=== PATIENT | male | born 1940 | race Caucasian/White ===

== ENCOUNTER → 2017-05-15 | Outpatient (CLI) | payer OTHER, MEDICARE | LOC: BMCIMAGING 10:57 | PROVIDERS: ATTEND Internal Medicine Rheumatology | DX: M05.89 Other rheumatoid arthritis with rheumatoid factor of multiple sites (principal) ==

== ENCOUNTER → 2018-12-30 | Outpatient (CLI) | payer OTHER, MEDICARE | LOC: FIMAGING 07:57 | PROVIDERS: ATTEND Internal Medicine Gastroenterology | DX: K21.9 Gastro-esophageal reflux disease without esophagitis (principal); K44.9 Diaphragmatic hernia without obstruction or gangrene; K22.4 Dyskinesia of esophagus ==

== ENCOUNTER 2019-03-03 20:53 | Inpatient (IN) | payer OTHER, MEDICARE ==
[2019-03-03] MEDS ORDERED: NS 1,000 ML IV ONE (21:10)
[2019-03-03 21:28] LABS: PLATELET COUNT 215 10^3/uL (150-400)
[2019-03-03 21:36] LABS: PROTIME(PATIENT) 12.8 SEC (12.0-15.0)
[2019-03-03] MEDS ORDERED: ACETAMINOPHEN 325 MG TAB PO ONE (21:46)
--- NOTE | 2019-03-03 22:02 | EDPHY ---
H & P Stated Complaint: ST, fever. sent from after neg flu and strep test Time Seen by Provider: 03/03/19 20:59 HPI/ROS: CHIEF COMPLAINT: Fever, sore throat HISTORY OF PRESENT ILLNESS: 78-year-old male presents to the emergency department after being seen at urgent care this evening. Patient is with his . He is relatively uncomfortable, with frequent clearing of his throat, spitting up mucus, and somewhat restless. states that he seemed to have a mild sore throat yesterday but developed a fever today. He has had no occasional cough. She reports that he had a temperature of a 102 degrees and she decided to take him to Urgent Care. She also notes that he seems restless and is not thinking clearly. Patient reports no history of vomiting or diarrhea. No complaints of abdominal pain. No urinary complaints. No complaints of headache or lightheadedness. REVIEW OF SYSTEMS: Review of systems is unobtainable from this patient because of altered mentation. PAST MEDICAL HISTORY: Hemochromatosis, rheumatoid arthritis on methotrexate, psoriasis SOCIAL HISTORY: Here with his . VITAL SIGNS Reviewed by me. Temperature is 38.4 degrees, O2 sat 90% on room air , heart rate 93 GENERAL: Well-developed, well-nourished, seems restless. Frequently blinking his eyes which the states is secondary to dry eyes. HEENT: Atraumatic. Eyes: No icterus, no injection. Mouth: Dry mucous membranes, uvula is slightly enlarged, erythema in the posterior pharynx. No tonsillar enlargement noted. Neck: supple with no adenopathy. No obvious swelling. No stridor. LUNGS: Diminished breath sounds at the left base, no rhonchi or rales. CARDIAC: Regular rate and rhythm, no rubs, murmurs or gallops. ABDOMEN: Soft, nontender, nondistended, bowel sounds normal. BACK: No CVA tenderness. EXTREMITIES: No trauma. No edema. Range of motion is normal throughout. NEURO: Alert, restless but answers questions appropriately although slowly. Moving all extremities x4, grossly nonfocal. SKIN: Warm and dry, no rash. PSYCHIATRIC: Slight somnolence, no agitation. - Personal History Current Tetanus/Diphtheria Vaccine: Unsure Current Tetanus Diphtheria and Acellular Pertussis (TDAP): Unsure Tetanus Vaccine Date: >10 YRS - Medical/Surgical History Hx Asthma: No Hx Chronic Respiratory Disease: No Hx Diabetes: No Hx Cardiac Disease: No Hx Renal Disease: No Hx Cirrhosis: No Hx Alcoholism: No Hx HIV/AIDS: No Hx Splenectomy or Spleen Trauma: No Other PMH: hemachromatosis, RA, psoriasis - Social History Smoking Status: Never smoked Constitutional: Initial Vital Signs Temperature (C) 38.4 C H 03/03/19 21:03 Heart Rate 93 03/03/19 21:03 Respiratory Rate 18 03/03/19 21:03 Blood Pressure 162/89 H 03/03/19 21:03 O2 Sat (%) 90 L 03/03/19 21:03 O2 Delivery Mode Room Air O2 (L/minute) 2 Allergies/Adverse Reactions: No Allergies [NKDA] Allergy (Verified 03/03/19 21:03) Medical Decision Making - Diagnostics Imaging Results: Imaging Impressions Chest X-Ray 03/03/19 21:10 Impression: 1. Bilateral lower lobe pneumonia. 2. Recommend follow-up until clear. Head CT 03/03/19 21:18 Impression: 1. Moderate atrophy. 2. No acute hemorrhage, hydrocephalus, or mass effect. 3. Cerebrovascular atherosclerosis. 4. No definite acute infarct. 5. Moderate microvascular ischemic gliosis. 6. Mild sinusitis. 7.Consider MRI of the brain, if there is continued clinical concern. Findings and recommendations discussed with Emergency Department physician, Suad Dillard MD at 22:07 hour, 03/03/2019. Final report concurs with initial preliminary interpretation. Imaging: Discussed imaging studies w/ electronic semiconductor processor Radiologist, I viewed and interpreted images myself ED Course/Re-evaluation: 78-year-old male presents to the emergency department with a fever as well as a sore throat. Temperature 38.4 degrees on arrival. 90% on room air. On examination, the patient seems to have difficulty swallowing, is frequently coughing and hacking up mucus. Sepsis protocol started. IV was placed. Normal saline was started. Chest x-ray demonstrates bilateral lower lobe pneumonia. Head CT performed to evaluate sinus; soft tissue CT scan of the neck demonstrates no deep space abscess or significant infection. Patient's course discussed with Dr. Sifuentes. Ceftriaxone and azithromycin administered. Sepsis Evaluation Note: The patient presents to the ED with potential infection identified as pneumonia. The patient did have evidence of sepsis with temperature greater than 38 degree Celsius, heart rate greater than 90. Patient did not have evidence of severe sepsis (lactic acid greater than 2, INR greater than 1.5, platelets less than 100,000, bilirubin greater than 2, creatinine greater than 2, systolic blood pressure less than 90 or MAP less than 65, or the need for intubation or positive pressure ventilation). Differential Diagnosis: Differential diagnosis for fever in adults was considered including but not limited to pneumonia, urinary tract infection, viral syndrome, and influenza. Consult/Admit Bed Type: Dr Garcia, [facility] Surg - Data Points Laboratory Results: Laboratory Results 03/03/19 21:15 03/03/19 21:15 03/03/19 03/03/19 03/03/19 21:24 21:15 21:15 WBC RBC Hgb POC Hgb 14.3 gm/dL gm/dL (13.7-17.5) Hct POC Hct 42 % % (40-51) MCV MCH MCHC RDW Plt Count MPV Neut % (Auto) Lymph % (Auto) [place] % (Auto) Eos % (Auto) Baso % (Auto) Nucleat RBC Rel Count Absolute Neuts (auto) Absolute Lymphs (auto) Absolute Monos (auto) Absolute Eos (auto) Absolute Basos (auto) Absolute Nucleated RBC Immature Gran % Seg Neutrophils % Band Neutrophils % Lymphocytes % Monocytes % Eosinophils % Basophils % Metamyelocytes % Myelocytes % Promyelocytes % Blast Cells % Immature Gran # Absolute Seg Neuts Absolute Band Neuts Absolute Lymphocytes Absolute Monocytes Absolute Eosinophils Absolute Basophils Absolute Metamyelocyte Absolute Myelocytes Absolute Promyelocytes Absolute Plasma Cells Nucleated RBCs RBC/WBC/PLT Morphology Absolute Blast Cells Plasma Cells % Platelet Estimate PT INR APTT VBG Lactic Acid 1.0 mmol/L mmol/L (0.7-2.1) POC Sodium 140 mEq/L mEq/L (135-145) Sodium POC Potassium 4.0 mEq/L mEq/L (3.3-5.0) Potassium POC Chloride 105 mEq/L mEq/L (97-110) Chloride Carbon Dioxide POC Total CO2 24 mEq/L mEq/L (22-31) Anion Gap POC BUN 31 mg/dL H mg/dL (7-23) BUN Creatinine POC Creatinine 1.3 mg/dL mg/dL (0.7-1.3) Estimated GFR Glucose POC Glucose 114 mg/dL H mg/dL (70-100) Calcium Total Bilirubin Procalcitonin Pending 03/03/19 03/03/19 03/03/19 21:15 21:15 21:15 WBC 10.40 10^3/uL H 10^3/uL (3.80-9.50) RBC 4.09 10^6/uL L 10^6/uL (4.40-6.38) Hgb 13.7 g/dL g/dL (13.7-17.5) POC Hgb Hct 39.5 % L % (40.0-51.0) POC Hct MCV 96.6 fL fL (81.5-99.8) MCH 33.5 pg pg (27.9-34.1) MCHC 34.7 g/dL g/dL (32.4-36.7) RDW 13.9 % % (11.5-15.2) Plt Count 215 10^3/uL 10^3/uL (150-400) MPV 11.5 fL fL (8.7-11.7) Neut % (Auto) Not Reported Lymph % (Auto) Not Reported [place] % (Auto) Not Reported Eos % (Auto) Not Reported Baso % (Auto) Not Reported Nucleat RBC Rel Count Not Reported Absolute Neuts (auto) Not Reported Absolute Lymphs (auto) Not Reported Absolute Monos (auto) Not Reported Absolute Eos (auto) Not Reported Absolute Basos (auto) Not Reported Absolute Nucleated RBC Not Reported Immature Gran % Not Reported Seg Neutrophils % 83.8 % % Band Neutrophils % 1.0 % % Lymphocytes % 8.1 % % Monocytes % 6.1 % % Eosinophils % 0.0 % % Basophils % 1.0 % % Metamyelocytes % 0.0 % % Myelocytes % 0.0 % % Promyelocytes % 0.0 % % Blast Cells % 0.0 % % Immature Gran # Not Reported Absolute Seg Neuts 8.72 10^3/uL H 10^3/uL (1.70-6.50) Absolute Band Neuts 0.10 10^3/uL 10^3/uL (0.00-0.70) Absolute Lymphocytes 0.84 10^3/uL L 10^3/uL (1.00-3.00) Absolute Monocytes 0.63 10^3/uL 10^3/uL (0.30-0.80) Absolute Eosinophils 0.00 10^3/uL L 10^3/uL (0.03-0.40) Absolute Basophils 0.10 10^3/uL 10^3/uL (0.02-0.10) Absolute Metamyelocyte 0.00 10^3/mL 10^3/mL (0.00-0.00) Absolute Myelocytes 0.00 10^3/mL 10^3/mL (0.00-0.00) Absolute Promyelocytes 0.00 10^3/uL 10^3/uL (0.00-0.00) Absolute Plasma Cells 0.00 10^3/uL 10^3/uL (0.00-0.00) Nucleated RBCs 0 /100 WBC /100 WBC (0-0) RBC/WBC/PLT Morphology NORMAL (NORMAL) Absolute Blast Cells 0.00 10^3/uL 10^3/uL (0.00-0.00) Plasma Cells % 0.0 % % Platelet Estimate ADEQUATE (ADEQ) PT 12.8 SEC SEC (12.0-15.0) INR 1.00 (0.83-1.16) APTT 28.2 SEC SEC (23.0-38.0) VBG Lactic Acid POC Sodium Sodium 135 mEq/L mEq/L (135-145) POC Potassium Potassium 4.2 mEq/L mEq/L (3.5-5.2) POC Chloride Chloride 103 mEq/L mEq/L (97-110) Carbon Dioxide 22 mEq/l mEq/l (22-31) POC Total CO2 Anion Gap 10 mEq/L mEq/L (6-14) POC BUN BUN 34 mg/dL H mg/dL (7-23) Creatinine 1.2 mg/dL mg/dL (0.7-1.3) POC Creatinine Estimated GFR 58 Glucose 111 mg/dL H mg/dL (70-100) POC Glucose Calcium 9.3 mg/dL mg/dL (8.5-10.4) Total Bilirubin 0.2 mg/dL mg/dL (0.1-1.4) Procalcitonin Medications Given: Discontinued Medications Acetaminophen (Tylenol) 650 mg PO EDNOW ONE Stop: 03/03/19 21:47 Last Admin: 03/03/19 21:48 Dose: 650 mg Sodium Chloride (Ns) 1,000 mls @ 0 mls/hr IV ONCE ONE PRN Reason: Wide Open Stop: 03/03/19 21:11 Last Admin: 03/03/19 21:11 Dose: 1,000 mls Ceftriaxone Sodium/Dextrose (Rocephin 1 Gm (Premix)) 50 mls @ 100 mls/hr IV EDNOW ONE PRN Reason: Protocol Stop: 03/03/19 22:23 Last Admin: 03/03/19 22:32 Dose: 50 mls Point of Care Test Results: Chemistry 03/03/19 21:24 POC Sodium 140 mEq/L mEq/L (135-145) POC Potassium 4.0 mEq/L mEq/L (3.3-5.0) POC Chloride 105 mEq/L mEq/L (97-110) POC Total CO2 24 mEq/L mEq/L (22-31) POC BUN 31 mg/dL H mg/dL (7-23) POC Creatinine 1.3 mg/dL mg/dL (0.7-1.3) POC Glucose 114 mg/dL H mg/dL (70-100) ISTAT H&H 03/03/19 21:24 POC Hgb 14.3 gm/dL gm/dL (13.7-17.5) POC Hct 42 % % (40-51) Departure - Departure Disposition: [facility] Inpatient Acute Clinical Impression: Bilateral pneumonia Qualifiers: Pneumonia type: due to unspecified organism Lung location: lower lobe of lung Qualified Code(s): J18.1 - Lobar pneumonia, unspecified organism Fever Qualifiers: Fever type: due to other condition Qualified Code(s): R50.81 - Fever presenting with conditions classified elsewhere Sepsis Qualifiers: Sepsis type: sepsis due to unspecified organism Qualified Code(s): A41.9 - Sepsis, unspecified organism Condition: Good
[2019-03-03] MEDS ORDERED: AZITHROMYCIN IV 500 MG in NS 250 ML IV ONE (22:23)
[2019-03-03] MEDS ORDERED: ONDANSETRON DISINTEGRATING 4 MG TAB PO PRN (22:24)
[2019-03-03] MEDS ORDERED: ONDANSETRON 4 MG/2 ML VIAL IVP PRN (22:24)
[2019-03-03] MEDS ORDERED: ACETAMINOPHEN 325 MG TAB PO PRN (22:24)
[2019-03-03] MEDS ORDERED: DIPHENHYDRAMINE CREAM TP PRN (22:56)
[2019-03-03] MEDS ORDERED: BENZOCAINE UNIT DOSE SPRAY HURRICAINE MM ONE ×2 (23:04→23:06)
[2019-03-03] MEDS: TEARS/DEXTRAN 70/HYPROMELLOSE 15 ML OPHT.BTL EACHEYE PRN (23:05)
--- NOTE | 2019-03-03 23:14 | PDGENHP ---
History and Physical - Chief Complaint Fever, sore throat - History of Present Illness 78 yo M w/ hx of HTN, RA, and GERD presents with fever. He went to PCP's office today with complaints of one day of sore throat, fever, and mild dry cough. He had a negative flu and strep swab there. Due to fever and chills, he was sent to the ED for further evaluation. In the ED he was noted to have a temperature of 38.4. He is mildly hypoxic (88% on RA). He is complaining of chills and sore throat. His CXR shows mild, bibasilar pneumonia. He is being admitted for further evaluation and treatment of this. Of note, the patient fell 2 weeks ago and injured his L thigh. He has some bruising laterally in this area. He denies pain at this time. Case discussed with ED physician Dr. Dillard; records reviewed and summarized above. History Information - Allergies/Home Medication List Allergies/Adverse Reactions: No Allergies [NKDA] Allergy (Verified 03/03/19 21:03) I have personally reviewed and updated: family history, medical history - Past Medical History GERD, hypertension Additional medical history: RA - Surgical History Additional surgical history: R JIM - Family History Positive for: hypertension Additional family history: Alzheimer's - Social History Smoking Status: Never smoked Review of Systems Review of Systems: ROS: 10pt was reviewed & negative except for what was stated in HPI & below Physical Exam Physical Exam: Temp Pulse Resp BP Pulse Ox 38.4 C H 93 18 162/89 H 95 03/03/19 21:03 03/03/19 21:03 03/03/19 21:03 03/03/19 21:03 03/03/19 21:08 Constitutional: appears nourished, uncomfortable Eyes: PERRL, scleral injection Ears, Nose, Mouth, Throat: moist mucous membranes, no oral mucosal ulcers Cardiovascular: regular rate and rhythym, no murmur, rub, or gallop Respiratory: no respiratory distress, inspiratory crackles Gastrointestinal: normoactive bowel sounds, soft, non-tender abdomen Skin: warm, normal color Musculoskeletal: full muscle strength, no muscle tenderness Neurologic: AAOx3, CN II-XII Intact Psychiatric: interacting appropriately, encephalopathic (Mildly) Lab Data & Imaging Review 03/03/19 21:15 03/03/19 21:15 WBC 10.40 10^3/uL (3.80-9.50) H 03/03/19 21:15 RBC 4.09 10^6/uL (4.40-6.38) L 03/03/19 21:15 Hgb 13.7 g/dL (13.7-17.5) 03/03/19 21:15 POC Hgb 14.3 gm/dL (13.7-17.5) 03/03/19 21:24 Hct 39.5 % (40.0-51.0) L 03/03/19 21:15 POC Hct 42 % (40-51) 03/03/19 21:24 MCV 96.6 fL (81.5-99.8) 03/03/19 21:15 MCH 33.5 pg (27.9-34.1) 03/03/19 21:15 MCHC 34.7 g/dL (32.4-36.7) 03/03/19 21:15 RDW 13.9 % (11.5-15.2) 03/03/19 21:15 Plt Count 215 10^3/uL (150-400) 03/03/19 21:15 MPV 11.5 fL (8.7-11.7) 03/03/19 21:15 Neut % (Auto) Not Reported 03/03/19 21:15 Lymph % (Auto) Not Reported 03/03/19 21:15 [place] % (Auto) Not Reported 03/03/19 21:15 Eos % (Auto) Not Reported 03/03/19 21:15 Baso % (Auto) Not Reported 03/03/19 21:15 Nucleat RBC Rel Count Not Reported 03/03/19 21:15 Absolute Neuts (auto) Not Reported 03/03/19 21:15 Absolute Lymphs (auto) Not Reported 03/03/19 21:15 Absolute Monos (auto) Not Reported 03/03/19 21:15 Absolute Eos (auto) Not Reported 03/03/19 21:15 Absolute Basos (auto) Not Reported 03/03/19 21:15 Absolute Nucleated RBC Not Reported 03/03/19 21:15 Immature Gran % Not Reported 03/03/19 21:15 Seg Neutrophils % 83.8 % 03/03/19 21:15 Band Neutrophils % 1.0 % 03/03/19 21:15 Lymphocytes % 8.1 % 03/03/19 21:15 Monocytes % 6.1 % 03/03/19 21:15 Eosinophils % 0.0 % 03/03/19 21:15 Basophils % 1.0 % 03/03/19 21:15 Metamyelocytes % 0.0 % 03/03/19 21:15 Myelocytes % 0.0 % 03/03/19 21:15 Promyelocytes % 0.0 % 03/03/19 21:15 Blast Cells % 0.0 % 03/03/19 21:15 Immature Gran # Not Reported 03/03/19 21:15 Absolute Seg Neuts 8.72 10^3/uL (1.70-6.50) H 03/03/19 21:15 Absolute Band Neuts 0.10 10^3/uL (0.00-0.70) 03/03/19 21:15 Absolute Lymphocytes 0.84 10^3/uL (1.00-3.00) L 03/03/19 21:15 Absolute Monocytes 0.63 10^3/uL (0.30-0.80) 03/03/19 21:15 Absolute Eosinophils 0.00 10^3/uL (0.03-0.40) L 03/03/19 21:15 Absolute Basophils 0.10 10^3/uL (0.02-0.10) 03/03/19 21:15 Absolute Metamyelocyte 0.00 10^3/mL (0.00-0.00) 03/03/19 21:15 Absolute Myelocytes 0.00 10^3/mL (0.00-0.00) 03/03/19 21:15 Absolute Promyelocytes 0.00 10^3/uL (0.00-0.00) 03/03/19 21:15 Absolute Plasma Cells 0.00 10^3/uL (0.00-0.00) 03/03/19 21:15 Nucleated RBCs 0 /100 WBC (0-0) 03/03/19 21:15 RBC/WBC/PLT Morphology NORMAL (NORMAL) 03/03/19 21:15 Absolute Blast Cells 0.00 10^3/uL (0.00-0.00) 03/03/19 21:15 Plasma Cells % 0.0 % 03/03/19 21:15 Platelet Estimate ADEQUATE (ADEQ) 03/03/19 21:15 PT 12.8 SEC (12.0-15.0) 03/03/19 21:15 INR 1.00 (0.83-1.16) 03/03/19 21:15 APTT 28.2 SEC (23.0-38.0) 03/03/19 21:15 VBG Lactic Acid 1.0 mmol/L (0.7-2.1) 03/03/19 21:15 POC Sodium 140 mEq/L (135-145) 03/03/19 21:24 Sodium 135 mEq/L (135-145) 03/03/19 21:15 POC Potassium 4.0 mEq/L (3.3-5.0) 03/03/19 21:24 Potassium 4.2 mEq/L (3.5-5.2) 03/03/19 21:15 POC Chloride 105 mEq/L (97-110) 03/03/19 21:24 Chloride 103 mEq/L (97-110) 03/03/19 21:15 Carbon Dioxide 22 mEq/l (22-31) 03/03/19 21:15 POC Total CO2 24 mEq/L (22-31) 03/03/19 21:24 Anion Gap 10 mEq/L (6-14) 03/03/19 21:15 POC BUN 31 mg/dL (7-23) H 03/03/19 21:24 BUN 34 mg/dL (7-23) H 03/03/19 21:15 Creatinine 1.2 mg/dL (0.7-1.3) 03/03/19 21:15 POC Creatinine 1.3 mg/dL (0.7-1.3) 03/03/19 21:24 Estimated GFR 58 03/03/19 21:15 Glucose 111 mg/dL (70-100) H 03/03/19 21:15 POC Glucose 114 mg/dL (70-100) H 03/03/19 21:24 Calcium 9.3 mg/dL (8.5-10.4) 03/03/19 21:15 Total Bilirubin 0.2 mg/dL (0.1-1.4) 03/03/19 21:15 Procalcitonin 0.07 ng/mL (0.02-0.10) 03/03/19 21:15 Urine Color YELLOW 03/03/19 22:33 Urine Appearance CLEAR 03/03/19 22:33 Urine pH 7.0 (5.0-7.5) 03/03/19 22:33 Ur Specific [place] 1.034 (1.002-1.030) H 03/03/19 22:33 Urine Protein NEGATIVE (NEGATIVE) 03/03/19 22:33 Urine Ketones NEGATIVE (NEGATIVE) 03/03/19 22:33 Urine Blood NEGATIVE (NEGATIVE) 03/03/19 22:33 Urine Nitrate NEGATIVE (NEGATIVE) 03/03/19 22:33 Urine Bilirubin NEGATIVE (NEGATIVE) 03/03/19 22:33 Urine Urobilinogen NEGATIVE EU (0.2-1.0) 03/03/19 22:33 Ur Leukocyte Esterase NEGATIVE (NEGATIVE) 03/03/19 22:33 Urine Glucose NEGATIVE (NEGATIVE) 03/03/19 22:33 Imaging Review: Imaging Impressions Chest X-Ray 03/03/19 21:10 Impression: 1. Bilateral lower lobe pneumonia. 2. Recommend follow-up until clear. Head CT 03/03/19 21:18 Impression: 1. Moderate atrophy. 2. No acute hemorrhage, hydrocephalus, or mass effect. 3. Cerebrovascular atherosclerosis. 4. No definite acute infarct. 5. Moderate microvascular ischemic gliosis. 6. Mild sinusitis. 7.Consider MRI of the brain, if there is continued clinical concern. Findings and recommendations discussed with Emergency Department physician, Suad Dillard MD at 22:07 hour, 03/03/2019. Final report concurs with initial preliminary interpretation. Neck CT 03/03/19:19 Impression: 1. No evidence of neck abscesses, fluid collections or significant adenopathy. 2. Airway appears patent. 3. Moderate cervical spondylosis. Findings and recommendations discussed with Emergency Department physician, Suad Dillard MD at 22:11 hour, 03/03/2019. Final report concurs with initial preliminary interpretation. Assessment & Plan Assessment: 78 yo M w/ HTN, RA, and GERD presents with pneumonia. Plan: 1. Bilateral pneumonia - Symptoms (sore throat, fever, dry cough) suggestive of viral etiology. Patient febrile to 38.4 but no other SIRS criteria present. Flu and strep swabs were negative at PCP's office earlier today. - Admit for observation - S/p CTX/Azithro tonight in ED, will hold further antibiotics pending additional work-up - Respiratory PCR, procalcitonin, blood cultures ordered - Albuterol PRN 2. Sore throat - Likely 2/2 viral infection; patient's throat swab was negative for strep at PCP's office. CT of the neck (personally reviewed/interpreted) does not demonstrate acute abnormality. - Lozenges PRN 3. Hypoxia - Currently requiring 2 L/min O2 to maintain O2 sats >89%; this is likely due to bilateral pneumonia. - Continue O2 PRN - Incentive spirometry ordered 4. Acute metabolic encephalopathy - A&Ox3 on my evaluation but with poor memory and concentration per his . - Acute treatment as above - Limit centrally acting medications as able 5. CKD, Stage III - Serum creatinine at baseline of 1.2. - Renally dose medications, avoid nephrotoxic agents 6. HTN - Hold meds initially in setting of infection, restart as necessary. 7. RA - On methotrexate qWK. 8. GERD - Continue PPI Diet - Regular Code - Full Ppx - LMWH Dispo - Admit under observation status
[2019-03-03] MEDS: PRAMIPEXOLE 0.125 MG TAB PO PRN (23:29)
[2019-03-04] MEDS: TEARS/DEXTRAN 70/HYPROMELLOSE 15 ML OPHT.BTL EACHEYE PRN ×2 (00:11→19:48)
[2019-03-04 05:10] LABS: PLATELET COUNT 197 10^3/uL (150-400)
[2019-03-04] MEDS: CEPACOL LOZENGE PO PRN ×3 (06:39→15:05)
[2019-03-04] MEDS: PRAMIPEXOLE 0.125 MG TAB PO PRN (09:31)
[2019-03-04] MEDS ORDERED: CARBOXYMETHYLCELLULOSE 1% 0.4 ML DROPERETTE EACHEYE PRN (09:39)
[2019-03-04] MEDS ORDERED: GABAPENTIN 100 MG CAP PO PRN (09:39)
[2019-03-04] MEDS ORDERED: BENZONATATE 100 MG CAP PO PRN (09:46)
[2019-03-04] MEDS ORDERED: NS 1,000 ML IV SCH (10:00)
[2019-03-04] MEDS: FOLIC ACID 1 MG TAB PO SCH (10:43)
[2019-03-04] MEDS: ASPIRIN 81 MG CHEWABLE TAB PO SCH (10:44)
[2019-03-04] MEDS: GUAIFENESIN/DM 10 ML UDCUP PO PRN ×3 (10:44→19:36)
[2019-03-04] MEDS: amLODIPine BESYLATE 5 MG TAB PO SCH (10:44)
[2019-03-04] MEDS: OMEGA-3 FATTY ACIDS 1,000 MG CAP PO SCH (10:44)
[2019-03-04] MEDS: MULTIVITAMINS 1 EACH TAB PO SCH (10:44)
[2019-03-04] MEDS: ENOXAPARIN 40 MG/0.4 ML SYR SC SCH (10:44)
[2019-03-04] MEDS: PANTOPRAZOLE SODIUM 40 MG TAB PO SCH (10:44)
[2019-03-04] MEDS: CALCIUM CARBONATE 500 MG TAB PO SCH (10:44)
[2019-03-04] MEDS ORDERED: METHOTREXATE 2.5 MG TAB PO SCH (11:00)
[2019-03-04] MEDS: ACETAMINOPHEN 650 MG/20.3 ML UDCUP PO PRN ×2 (15:13→19:34)
--- NOTE | 2019-03-04 15:15 | HOSPPROG ---
Hospitalist Progress Note Assessment/Plan: #Viral pneumonia: supportive care with anti-tussives IVFs #Deconditioning: at risk for fall and subsequent harm with acute illness on top of recent piriformis tear, RLS. Cont PT #CKD 3: Cr stable #RA: will cont MTX #GERD: ppi #Diet: regular #DVT ppx: Lovenox Disp: inpatient admission given weakness, risk for fall. Cont PT Subjective: sore throat, productive cough Objective: Vital Signs Temp Pulse Resp BP Pulse Ox 37.6 C 78 18 144/65 H 94 03/04/19 11:35 03/04/19 11:35 03/04/19 11:35 03/04/19 11:35 03/04/19 11:35 Laboratory Results 03/04/19 04:24 03/04/19 04:24 03/03/19 03/04/19 03/05/19 05:59 05:59 05:59 Intake Total 100 Balance 100 PT 12.8 SEC (12.0-15.0) 03/03/19 21:15 INR 1.00 (0.83-1.16) 03/03/19 21:15 - Time Spent With Patient Time Spent with Patient: greater than 35 minutes Time Spent with Patient: Greater than 35 minutes spent on this patients care, greater than 50% of time spent counseling, educating, and coordinating care regarding the above mentioned plan. - Physical Exam Constitutional: uncomfortable Eyes: PERRL Ears, Nose, Mouth, Throat: moist mucous membranes Cardiovascular: regular rate and rhythym Respiratory: rhonchi Gastrointestinal: normoactive bowel sounds Genitourinary: no bladder fullness Neurologic: other (full-body jerking movement) Psychiatric: interacting appropriately, flat affect ICD10 Worksheet Patient Problems: Problems Problem Status Onset Bilateral pneumonia Acute Fever Acute Sepsis Acute
--- NOTE | 2019-03-04 15:53 | PDMN ---
Medical Necessity Medical necessity: Change to IP, as of 03/04/19, per MD & MCG [id number]; los >2 mn for ongoing management of pneumonia w/hypoxia (currently requiring 2L O2 to maintain sats >90%) & weakness; requiring further monitoring, respiratory supportive care & therapy; comorbid advanced age, CKD 3, RA on immunosuppressive
[2019-03-04] MEDS: ALBUTEROL 3 ML DEYVIAL IH PRN ×2 (15:57→20:00)
[2019-03-04] MEDS ORDERED: LOSARTAN POTASSIUM 50 MG TAB PO SCH (19:00)
[2019-03-04] MEDS ORDERED: PRAMIPEXOLE 1 MG TAB PO SCH (19:00)
[2019-03-05] MEDS: TEARS/DEXTRAN 70/HYPROMELLOSE 15 ML OPHT.BTL EACHEYE PRN (05:06)
[2019-03-05 08:06] VITALS: BP 100/70
[2019-03-05] MEDS: MULTIVITAMINS 1 EACH TAB PO SCH (09:15)
[2019-03-05] MEDS: ASPIRIN 81 MG CHEWABLE TAB PO SCH (09:16)
[2019-03-05] MEDS: PANTOPRAZOLE SODIUM 40 MG TAB PO SCH (09:16)
[2019-03-05] MEDS: FOLIC ACID 1 MG TAB PO SCH (09:16)
[2019-03-05] MEDS: CALCIUM CARBONATE 500 MG TAB PO SCH (09:16)
[2019-03-05] MEDS: amLODIPine BESYLATE 5 MG TAB PO SCH (09:16)
[2019-03-05] MEDS: OMEGA-3 FATTY ACIDS 1,000 MG CAP PO SCH (09:16)
[2019-03-05] MEDS: ENOXAPARIN 40 MG/0.4 ML SYR SC SCH (09:16)
--- NOTE | 2019-03-05 09:26 | PDIAF ---
- Diagnosis Diagnosis: Viral pneumonia Code Status: Full Code - Medication Management Discharge Medications: electronically signed and located in the Home Medication List. - Orders Services needed: Home Care, Physical Therapy, Occupational Therapy Home Care Face to Face: I certify that this patient was under my care and that I had the required [id number] encounter meeting the encounter requirements on the discharge day. My findings support the fact that the patient is homebound as defined in Home Care Face to Face Continued: CMS Chapter 7 Medicare Benefits Manual 30.1.1 , The condition of the patient is such that there exists a normal inability to leave home and consequently, leaving home would require a considerable and taxing effort. Isolation Type: Droplet Isolation Diet Recommendation: no restrictions on diet Diet Texture: Regular Texture Diet Additional Instructions: HOLD Losartan and Amlodipine today. Check blood pressure. Restart medications once systolic blood pressure (top number) >140 - Follow Up Care Current Providers and Referrals: Jim Noel MD [Primary Care Provider] - As per Instructions
--- NOTE | 2019-03-05 09:43 | GDS ---
[f rep st] DISCHARGE SUMMARY DISCHARGE DIAGNOSES: 1. Parainfluenza. 2. Upper respiratory infection. 3. Chronic kidney disease 3. 4. Rheumatoid arthritis. 5. Gastroesophageal reflux disease. 6. Deconditioning. 7. Acute metabolic encephalopathy. HISTORY OF PRESENT ILLNESS: An 78-year-old male with restless legs syndrome, recent piriformis tear, who presented to his PCP with sore throat, fever, dry cough. Negative flu and strep swab. He prese nted to the ED with fever of 38.4, mildly hypoxic, 88% on room air. HOSPITAL COURSE BY PROBLEM: 1. Parainfluenza. 2. Viral pneumonia: Hemodynamically stable. Lactate and WBC were normal. Symptomatic treatment wi th cough suppressants. 3. Sore throat, likely due to viral infection. Had a negative strep test. 4. Acute metabolic encephalopathy per , but on exam initially per my partner's interview was adal rt and oriented x3. He is now at his baseline. 5. CKD. Creatinine stable. 6. Hypertension. Blood pressure is low with decreased p.o. intake. Recommend holding losartan, aml odipine today and check blood pressure tomorrow. Resume when warranted. 7. Rheumatoid arthritis. Okay to continue methotrexate. 8. GERD. PPI. DISPOSITION: Stable for discharge with home health. NEW MEDICATIONS: Robitussin. FOLLOWUP: Primary care physician. PHYSICAL EXAMINATION: VITAL SIGNS: Today, temperature 37.1, blood pressure 100/73, heart rate 70s, respirations 18, 93% on room air. GENERAL: Much brighter appearing, not tremulous. HEENT: PERRLA. CV: Regular rate and rhythm. LUNGS: Clear. No rhonchi. ABDOMEN: Soft, nontender. : No Fol ey. MUSCULOSKELETAL: Moving all 4 extremities. NEURO: 2 through 12 intact. PSYCH: Alert and ernesto ented x3. Flat affect. TIME SPENT ON DISCHARGE: Greater than 30 minutes counseling patient and on precautions and symp pretty management. /[id number]/MODL
--- NOTE | 2019-03-05 10:10 | ASMTLACE ---
LACE Length of stay for Answers: 1 day current admission Acuity / Level of Answers: Yes Care: Did the patient have an inpatient admission? Comorbidities - select Answers: Other Notes: HTN all that apply # of Emergency department Answers: 1-2 visits in the last 6 months Score: 6 Date Signed: 03/05/2019 10:09 AM Electronically Signed By:Janice Loyola RN
--- NOTE | 2019-03-05 10:54 | ASMTDCNOTE ---
Case Management Discharge Discharge Order Complete? Answers: Yes Patient to Obtain Answers: via Family Medications Transportation Arranged Answers: Family/Friends Faxed Final Orders Answers: Yes Agency/Facility Transfer Answers: Yes Report Printed & Faxed to Receiving Agency Family Notified Answers: Yes Discharge Comments Notes: Reviewed chart, Latonya at [facility] notified and will come to meet pt and . Date Signed: 03/05/2019 10:15 AM Electronically Signed By:Janice Loyola RN
--- NOTE | 2019-03-05 10:54 | ASMTCMCOM ---
CM Note CM Note Notes: Pt admitted for bilateral pneumonia. Met with pt and , PT recommends homecare. They are agreeable and have no agency preference. CM sent referral to [facility] and they can accept. DC Plan: Homecare/ [facility] (PT/OT) Date Signed: 03/05/2019 10:12 AM Electronically Signed By:Janice Loyola RN
--- NOTE | 2019-03-05 15:03 | ASDISCHSUM ---
Discharge Information Plan Status:Home with Home Health Medically Cleared to Leave: Discharge Date:03/05/2019 12:02 PM D/C Disposition:Home Health Service ADT D/C Disposition:Home, Routine, Self-Care Projected Discharge Date:03/05/2019 11:00 AM Transportation at D/C:Family Discharge Delay Reason: Follow-Up Date:03/05/2019 11:00 AM Discharge Slot: Final Diagnosis: Placement Information Referral Type:*Home Health Care Services Referral ID:[id number] Provider Name:[facility] [place] Address 1:[address] [place] [address] Address 2: City:[place] Selection Factors: State:[place] Patient Contact Information Contact Name:NATY Relationship: Address:[address] City:[facility] Phone: State/Zip Code:[place] [address] Email: Financial Information Financial Class:Medicare Primary Plan Desc:MEDICARE INPATIENT Primary Plan Number:[id number] Secondary Plan Desc:[place]/MDR SUPPLEMENT Secondary Plan Number:[id number] Assessment Information LACE LACE Length of stay for Answers: 1 day current admission Acuity / Level of Answers: Yes Care: Did the patient have an inpatient admission? Comorbidities - select Answers: Other Notes: HTN all that apply # of Emergency department Answers: 1-2 visits in the last 6 months Score: 6 Date Signed: 03/05/2019 10:09 AM Electronically Signed By:Janice Loyola RN [facility] CM Progress Note CM Note CM Note Notes: Pt admitted for bilateral pneumonia. Met with pt and , PT recommends homecare. They are agreeable and have no agency preference. CM sent referral to [facility] and they can accept. DC Plan: Homecare/ [facility] (PT/OT) Date Signed: 03/05/2019 10:12 AM Electronically Signed By:Janice Loyola RN Case Management Discharge Plan Note Case Management Discharge Discharge Order Complete? Answers: Yes Patient to Obtain Answers: via Family Medications Transportation Arranged Answers: Family/Friends Faxed Final Orders Answers: Yes Agency/Facility Transfer Answers: Yes Report Printed & Faxed to Receiving Agency Family Notified Answers: Yes Discharge Comments Notes: Reviewed chart, Latonya at notified and will come to meet pt and . Date Signed: 03/05/2019 10:15 AM Electronically Signed By:Janice Loyola RN Intervention Information Intervention Type:*CASIANO-Signed Date of Service:03/04/2019 01:37 PM Patient Type:Observation Staff Member:Azalia Peres Hours: Discipline: Severity: Comment:
== END 2019-03-05 12:02 | disposition home or self-care (01) | DRG 193 ==
LOC: F3E 23:38 → OBSVTOIN 03-04 15:15
PROVIDERS: ADMIT Student in an Organized Health Care Education/Training Program; ATTEND Student in an Organized Health Care Education/Training Program
DX: J12.2 Parainfluenza virus pneumonia (principal); G93.41 Metabolic encephalopathy; M06.9 Rheumatoid arthritis, unspecified; I12.9 Hypertensive chronic kidney disease with stage 1 through stage 4 chronic kidney disease, or unspecified chronic kidney disease; N18.3 Chronic kidney disease, stage 3 (moderate); K21.9 Gastro-esophageal reflux disease without esophagitis
CPT/HCPCS: 82435-PO; 82565-PO; 82947-PO; 84132-PO; 84295-PO; 84520-PO; 85014-ER; 96365; 97116-GP; 97162-GP; G0378; J0456; J0696; J1650; J7613

== ENCOUNTER 2019-03-07 16:40 | Observation (INO) | payer OTHER, MEDICARE ==
[2019-03-07 17:48] LABS: PLATELET COUNT 177 10^3/uL (150-400)
[2019-03-07] MEDS ORDERED: AZITHROMYCIN IV 500 MG in D5W 250 ML IV ONE (18:33)
--- NOTE | 2019-03-07 18:37 | EDPHY ---
H & P Stated Complaint: has fever that isn't going away, d/c from hosp 03/05 for pneumonia Time Seen by Provider: 03/07/19 16:49 HPI/ROS: CHIEF COMPLAINT: Fever HISTORY OF PRESENT ILLNESS: This is an 78-year-old male who was hospitalized from March 03 through March 05 with viral pneumonia (parainfluenza). Initially upon returning home he did well except for persistent cough. However, yesterday afternoon he developed a shaking chill followed by a temperature of 100.3 degrees. He has been taking Tylenol regularly -- it sounds as if he is taking 1000 mg every 8 hours. He has breakthrough fevers with this regimen. This afternoon he had a temperature of 100.8 degrees preceded by a shaking chill. He received 1000 mg of Tylenol at 3:30 p.m. today. Out of concern he and his have return to the emergency department for further evaluation. Aside from persistent cough he has no other complaint. He takes methotrexate for RA. REVIEW OF SYSTEMS: A ten system review of systems was performed and is negative with the exception of the items mentioned in the HPI. Chronic low back pain with some sciatica. Past medical history: 1. Recent viral pneumonia 2. HTN 3. RA 4. GERD 5. CKD 6. Restless leg syndrome Past surgical history: Right total hip arthroplasty Family history: Dementia, HTN Social history: He lives with his . No tobacco use. No tobacco use. General Appearance: Alert. Vital signs reviewed. 147/87. Eyes: Pupils equal and round, no conjunctival injection, no discharge. Anicteric. ENT, Mouth: Mucous membranes are moist, no oropharyngeal erythema or edema. Neck: No lymphadenopathy, supple. Respiratory: Lungs are clear to auscultation; no wheezes, rales, or rhonchi. Cardiovascular: Regular rate and rhythm; no murmur, rub, or gallop. Gastrointestinal: Abdomen is soft and nontender, no masses or organomegaly, bowel sounds normal. Skin: Warm and dry, no rashes on exposed skin, normal color. Back: Nontender to palpation over the thoracolumbar spine. No CVAT. Extremities: No lower extremity edema, no calf tenderness or swelling. Neurological: Alert and oriented. Moving all four extremities easily and equally. AUGUST. EOMI. Facial expressions symmetric. Tongue midline. Psychiatric: Normal affect. - Personal History Tetanus Vaccine Date: >10 YRS - Medical/Surgical History Hx Asthma: No Hx Chronic Respiratory Disease: No Hx Diabetes: No Hx Cardiac Disease: No Hx Renal Disease: No Hx Cirrhosis: No Hx Alcoholism: No Hx HIV/AIDS: No Hx Splenectomy or Spleen Trauma: No Other PMH: hemachromatosis, RA, psoriasis. HTN, GERD, RLS - Social History Smoking Status: Never smoked Constitutional: Initial Vital Signs Temperature (C) 37.2 C 03/07/19 16:43 Heart Rate 73 03/07/19 16:43 Respiratory Rate 16 03/07/19 16:43 Blood Pressure 147/87 H 03/07/19 16:43 O2 Sat (%) 93 03/07/19 16:43 O2 Delivery Mode Room Air Allergies/Adverse Reactions: No Allergies [NKDA] Allergy (Verified 03/03/19 21:03) Home Medications: Medication Instructions Recorded Aspirin [Aspirin 81mg (*)] 81 mg PO DAILY 03/04/19 Calcium Carbonate [Oyster Shell 500 mg PO HS 03/04/19 Calcium 500 mg (*)] Carboxymethylcellulose 1% [Refresh 1 drop EACHEYE HS PRN 03/04/19 Celluvisc (*)] Esomeprazole Mag Trihydrate 40 mg PO DAILY@0630 03/04/19 [Nexium] Folic Acid [Folic Acid 1 MG (*)] 1 mg PO DAILY 03/04/19 Gabapentin [Neurontin 100 MG (*)] 100 mg PO BID PRN 03/04/19 Losartan Potassium 100 mg PO DAILY@03/04/19 Methotrexate Sodium [Rheumatrex] 20 mg PO WE 03/04/19 Multivitamins [Multivitamin (*)] 1 each PO DAILY 03/04/19 [place]-3 Fatty Acids [Fish Oil 1000 1,000 mg PO HS 03/04/19 mg (*)] Pramipexole Di-HCl [Mirapex 1 mg 1 mg PO DAILY@03/04/19 (*)] amLODIPine BESYLATE [Norvasc 5 mg 5 mg PO DAILY 03/04/19 (*)] guaiFENesin/DEXTROMETHORPHAN 10 ml PO Q4HRS PRN ml 03/05/19 [Robitussin Dm Oral Liquid (*)] Acetaminophen [Tylenol 325mg (*)] 650 mg PO Q4HRS PRN tab 03/08/19 Amox Tr/K Clav (Augmentin) 500 mg PO BID #10 tab 03/08/19 [Augmentin 500/125 MG TAB (*)] Medical Decision Making ED Course/Re-evaluation: Concern for bacterial pneumonia in the setting of her recent viral pneumonia. Chest x-ray shows bilateral infiltrates with possible slight worsening of the right lower lobe infiltrate. He is not febrile or hypoxic. No fever in ED. Anemia seen in bloodwork is not new. No elevation in WBC. Patient will be admitted to the hospitalist service for IV antibiotics and observation. Ceftriaxone and Azithromycin ordered. He did not receive a course of antibiotic therapy during his last hospitalization. He is not septic. Unclear at this time whether this is progression of his known parainfluenza pneumonia or a bacterial superinfection. He is immunocompromised, on methotrexate. I have not found another source for fever--no urine obtained in ED, no skin changes suggesting cellulitis or other skin infection. 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 No abdominal pain that would prompt search for intra-abdominal infection. - Data Points Laboratory Results: Laboratory Results 03/07/19 17:35 03/07/19 17:35 Medications Given: Discontinued Medications Acetaminophen (Tylenol) 650 mg PO Q4HRS PRN PRN Reason: Pain, Mild/Fever, Can Take PO Stop: 09/03/19 19:05 Last Admin: 03/08/19 15:37 Dose: 650 mg Amlodipine Besylate (Norvasc) 5 mg PO DAILY JOLEEN Stop: 09/04/19 08:59 Last Admin: 03/08/19 09:16 Dose: 5 mg Amoxicillin/Clavulanate Potassium (Augmentin 500/125mg Tab) 500 mg PO ONCE ONE PRN Reason: Protocol Stop: 03/08/19 13:47 Last Admin: 03/08/19 15:29 Dose: 500 mg Aspirin (Aspirin) 81 mg PO DAILY JOLEEN Stop: 09/04/19 08:59 Last Admin: 03/08/19 09:17 Dose: 81 mg Calcium Carbonate (Oyster Shell Calcium) 500 mg PO HS JOLEEN Stop: 09/03/19 20:59 Last Admin: 03/07/19 21:45 Dose: Not Given Carboxymethylcellulose (Refresh Celluvisc) 1 drop EACHEYE HS PRN PRN Reason: Dry Irritated Eyes Stop: 09/03/19 19:18 Last Admin: 03/08/19 10:52 Dose: 1 drop Folic Acid (Folic Acid) 1 mg PO DAILY JOLEEN Stop: 09/04/19 08:59 Last Admin: 03/08/19 09:16 Dose: 1 mg Ceftriaxone Sodium/Dextrose (Rocephin 1 Gm (Premix)) 50 mls @ 100 mls/hr IV EDNOW ONE PRN Reason: Protocol Stop: 03/07/19 19:02 Last Admin: 03/07/19 18:40 Dose: 50 mls Azithromycin 500 mg/ Sodium (Chloride) 255 mls @ 255 mls/hr IV EDNOW ONE Stop: 03/07/19 19:59 Last Admin: 03/07/19 19:28 Dose: 255 mls Ceftriaxone Sodium/Dextrose (Rocephin 1 Gm (Premix)) 50 mls @ 100 mls/hr IV DAILY JOLEEN PRN Reason: Protocol Stop: 04/07/19 08:59 Last Admin: 03/08/19 09:14 Dose: Not Given Levofloxacin/Dextrose (Levaquin 750 Mg (Premix)) 150 mls @ 100 mls/hr IV Q24H JOLEEN PRN Reason: Protocol Stop: 04/06/19 19:59 Last Admin: 03/07/19 21:35 Dose: 150 mls Multivitamins (Tab-A-[place]) 1 each PO DAILY JOLEEN Stop: 09/04/19 08:59 Last Admin: 03/08/19 09:17 Dose: 1 each [id number] Ethyl Esters (Fish Oil) 1,000 mg PO HS JOLEEN Stop: 09/03/19 20:59 Last Admin: 03/07/19 21:46 Dose: Not Given Pantoprazole Sodium (Protonix) 40 mg PO DAILY@0630 JLOEEN Stop: 09/04/19 06:29 Last Admin: 03/08/19 05:00 Dose: 40 mg Departure - Departure Disposition: [facility] Acute Clinical Impression: Bilateral pneumonia Condition: Good
[2019-03-07] MEDS ORDERED: AZITHROMYCIN IV 500 MG in NS 250 ML IV ONE (19:00)
[2019-03-07] MEDS ORDERED: ALBUTEROL 3 ML DEYVIAL IH PRN (19:06)
[2019-03-07] MEDS ORDERED: ONDANSETRON DISINTEGRATING 4 MG TAB PO PRN (19:06)
[2019-03-07] MEDS ORDERED: PROMETHAZINE HCL 25 MG/ML INJ IVP PRN (19:06)
[2019-03-07] MEDS ORDERED: oxyCODONE IR 5 MG TAB PO PRN (19:06)
[2019-03-07] MEDS ORDERED: HYDROCODONE/APAP 5/325 TAB PO PRN (19:06)
[2019-03-07] MEDS ORDERED: ONDANSETRON 4 MG/2 ML VIAL IVP PRN (19:06)
[2019-03-07] MEDS ORDERED: HYDROmorphONE/DILAUDID 1 MG/ML INJ IVP PRN (19:06)
--- NOTE | 2019-03-07 19:18 | PDGENHP ---
History and Physical - Chief Complaint fever, cough, back pain radiating to lower leg - History of Present Illness 78 yo M with w/PMH of RA on chronic immune suppression as well as GERD and HTN and recent admission here for pneumonia with parainfluenza virus. He was monitored overnight and discharged after 2 days of monitoring without abx. He states he felt well initially but then yesterday again began to develop fevers and shaking chills. He notes his temperature got up to 100.8 at home at the highest. He has been taking tylenol around the clock but continues to have fevers. He has been coughing since his admission, he notes it got less productive and is not as bad as it was initially but not gone. He also complains of continued pain in his lower back associated with burning pain in his calf that he was told was piriformis syndrome by his PCP. He notes he was playing pickle ball 3 weeks ago and fell on his right hip. 3 days later he began having pain in his left hip and developed a large bruise on his left hip, which is when he saw his PCP. He has been having issues with walking since then and is now using a cane to ambulate. He thinks the pain is getting a bit better but not resolved. History Information - Allergies/Home Medication List Allergies/Adverse Reactions: No Allergies [NKDA] Allergy (Verified 03/03/19 21:03) Home Medications: Aspirin [Aspirin 81mg (*)] 81 mg PO DAILY 03/04/19 [Last Taken 03/07/19] Calcium Carbonate [Oyster Shell Calcium 500 mg (*)] 500 mg PO HS 03/04/19 [Last Taken 03/06/19] Carboxymethylcellulose 1% [Refresh Celluvisc (*)] 1 drop EACHEYE HS PRN [Last Taken Unknown] Esomeprazole Mag Trihydrate [Nexium] 40 mg PO DAILY@0630 03/04/19 [Last Taken ] Folic Acid [Folic Acid 1 MG (*)] 1 mg PO DAILY 03/04/19 [Last Taken 03/07/19] Gabapentin [Neurontin 100 MG (*)] 100 mg PO BID PRN 03/04/19 [Last Taken Unknown ] Losartan Potassium 100 mg PO DAILY@03/04/19 [Last Taken 03/07/19] Methotrexate Sodium [Rheumatrex] 20 mg PO WE 03/04/19 [Last Taken 03/04/19] Multivitamins [Multivitamin (*)] 1 each PO DAILY 03/04/19 [Last Taken 03/07/19] [place]-3 Fatty Acids [Fish Oil 1000 mg (*)] 1,000 mg PO HS 03/04/19 [Last Taken 03/06/19] Pramipexole Di-HCl [Mirapex 1 mg (*)] 1 mg PO DAILY@19 03/04/19 [Last Taken ] amLODIPine BESYLATE [Norvasc 5 mg (*)] 5 mg PO DAILY 03/04/19 [Last Taken ] Acetaminophen [Tylenol ES 500 mg (*)] 1,000 mg PO Q8H PRN 03/07/19 [Last Taken 03/07/19 13:00] I have personally reviewed and updated: family history, medical history, social history, surgical history - Past Medical History GERD, hypertension Additional medical history: RA - Surgical History Additional surgical history: B JIM - Family History Positive for: hypertension Additional family history: Alzheimer's - Social History Smoking Status: Never smoked Alcohol Use: Rarely Drug Use: None Additional social history: lives independently, Review of Systems Review of Systems: ROS: 10pt was reviewed & negative except for what was stated in HPI & below Physical Exam Physical Exam: Temp Pulse Resp BP Pulse Ox 36.5 C 81 16 162/90 H 97 03/07/19 18:28 03/07/19 18:28 03/07/19 18:28 03/07/19 18:28 03/07/19 18:28 Constitutional: no apparent distress, appears nourished Eyes: PERRL, anicteric sclera Ears, Nose, Mouth, Throat: moist mucous membranes, hearing normal Cardiovascular: regular rate and rhythym, no murmur, rub, or gallop, edema Respiratory: no respiratory distress, inspiratory crackles Gastrointestinal: normoactive bowel sounds, soft, non-tender abdomen Genitourinary: no bladder tenderness Skin: warm, normal color, other Musculoskeletal: pain with ROM, abnormal gait Neurologic: AAOx3 Psychiatric: interacting appropriately, not anxious, not encephalopathic Lab Data & Imaging Review 03/07/19 17:35 03/07/19 17:35 WBC 6.01 10^3/uL (3.80-9.50) 03/07/19 17:35 RBC 3.81 10^6/uL (4.40-6.38) L 03/07/19 17:35 Hgb 12.9 g/dL (13.7-17.5) L 03/07/19 17:35 Hct 36.7 % (40.0-51.0) L 03/07/19 17:35 MCV 96.3 fL (81.5-99.8) 03/07/19 17:35 MCH 33.9 pg (27.9-34.1) 03/07/19 17:35 MCHC 35.1 g/dL (32.4-36.7) 03/07/19 17:35 RDW 13.8 % (11.5-15.2) 03/07/19 17:35 Plt Count 177 10^3/uL (150-400) 03/07/19 17:35 MPV 12.0 fL (8.7-11.7) H 03/07/19 17:35 Neut % (Auto) Not Reported 03/07/19 17:35 Lymph % (Auto) Not Reported 03/07/19 17:35 [place] % (Auto) Not Reported 03/07/19 17:35 Eos % (Auto) Not Reported 03/07/19 17:35 Baso % (Auto) Not Reported 03/07/19 17:35 Nucleat RBC Rel Count Not Reported 03/07/19 17:35 Absolute Neuts (auto) Not Reported 03/07/19 17:35 Absolute Lymphs (auto) Not Reported 03/07/19 17:35 Absolute Monos (auto) Not Reported 03/07/19 17:35 Absolute Eos (auto) Not Reported 03/07/19 17:35 Absolute Basos (auto) Not Reported 03/07/19 17:35 Absolute Nucleated RBC Not Reported 03/07/19 17:35 Immature Gran % Not Reported 03/07/19 17:35 Seg Neutrophils % 86.0 % 03/07/19 17:35 Band Neutrophils % 0.0 % 03/07/19 17:35 Lymphocytes % 9.0 % 03/07/19 17:35 Monocytes % 2.0 % 03/07/19 17:35 Eosinophils % 3.0 % 03/07/19 17:35 Basophils % 0.0 % 03/07/19 17:35 Metamyelocytes % 0.0 % 03/07/19 17:35 Myelocytes % 0.0 % 03/07/19 17:35 Promyelocytes % 0.0 % 03/07/19 17:35 Blast Cells % 0.0 % 03/07/19 17:35 Immature Gran # Not Reported 03/07/19 17:35 Absolute Seg Neuts 5.17 10^3/uL (1.70-6.50) 03/07/19 17:35 Absolute Band Neuts 0.00 10^3/uL (0.00-0.70) 03/07/19 17:35 Absolute Lymphocytes 0.54 10^3/uL (1.00-3.00) L 03/07/19 17:35 Absolute Monocytes 0.12 10^3/uL (0.30-0.80) L 03/07/19 17:35 Absolute Eosinophils 0.18 10^3/uL (0.03-0.40) 03/07/19 17:35 Absolute Basophils 0.00 10^3/uL (0.02-0.10) L 03/07/19 17:35 Absolute Metamyelocyte 0.00 10^3/mL (0.00-0.00) 03/07/19 17:35 Absolute Myelocytes 0.00 10^3/mL (0.00-0.00) 03/07/19 17:35 Absolute Promyelocytes 0.00 10^3/uL (0.00-0.00) 03/07/19 17:35 Absolute Plasma Cells 0.00 10^3/uL (0.00-0.00) 03/07/19 17:35 Nucleated RBCs 0 /100 WBC (0-0) 03/07/19 17:35 Absolute Blast Cells 0.00 10^3/uL (0.00-0.00) 03/07/19 17:35 Plasma Cells % 0.0 % 03/07/19 17:35 Platelet Estimate ADEQUATE (ADEQ) 03/07/19 17:35 Oval Macrocytes 1+ H 03/07/19 17:35 Sodium 135 mEq/L (135-145) 03/07/19 17:35 Potassium 4.8 mEq/L (3.5-5.2) 03/07/19 17:35 Chloride 105 mEq/L (97-110) 03/07/19 17:35 Carbon Dioxide 19 mEq/l (22-31) L 03/07/19 17:35 Anion Gap 11 mEq/L (6-14) 03/07/19 17:35 BUN 27 mg/dL (7-23) H 03/07/19 17:35 Creatinine 1.1 mg/dL (0.7-1.3) 03/07/19 17:35 Estimated GFR > 60 03/07/19 17:35 Glucose 99 mg/dL (70-100) 03/07/19 17:35 Calcium 8.8 mg/dL (8.5-10.4) 03/07/19 17:35 Visualized and Interpreted Chest x-ray results: Yes Chest X-Ray results: infiltrate (bilateral lung bases) Assessment & Plan Assessment: Bilateral pneumonia (Acute) 78 yo M with hx of RA on chronic immune suppression and recent hospitalization for viral pneumonia returns with fever and increased infiltrate on cxr concerning for bacterial pna # pna: xray notable for increased BLL infiltrate and with recurrent fever suspect bacterial infection following recent viral pna, he was treated with only one day of abx at his last hospital stay. Given ctx/levofloxacin in ER and will continue. So long as he improves as expected, can likely dc on levofloxacin in am # lower back pain/hip hematoma: patient describes falling on his right hip 3 weeks ago followed by left hip pain and bruising, dx'ed as piriformis syndrome by pcp but no imaging, does have B JIM. Will get hip and lumbar spine plain films for now, pt/ot to evaluate. Has f/u set up with ortho but missed his appointment due to being in hospital # RA: on MTX which will be continued # parainfluenza virus: diagnosed at last hospital stay, blood cultures from that visit negative # anemia: mild, likely due to anemia of chronic disease # observation status Patient new to my care. Old records reviewed and summarized as above. Care plan reviewed with ER doctor, further hx obtained from patients present at bedside.
[2019-03-07] MEDS ORDERED: CARBOXYMETHYLCELLULOSE 1% 0.4 ML DROPERETTE EACHEYE PRN (19:19)
[2019-03-07] MEDS ORDERED: GABAPENTIN 100 MG CAP PO PRN (19:19)
[2019-03-07] MEDS ORDERED: GUAIFENESIN/DM 10 ML UDCUP PO PRN (19:19)
[2019-03-07] MEDS: OMEGA-3 FATTY ACIDS 1,000 MG CAP PO SCH ×2 (21:34→21:46)
[2019-03-07] MEDS: CALCIUM CARBONATE 500 MG TAB PO SCH ×2 (21:34→21:45)
[2019-03-07] MEDS: ACETAMINOPHEN 325 MG TAB PO PRN (21:34)
[2019-03-08] MEDS: ACETAMINOPHEN 325 MG TAB PO PRN ×2 (05:00→15:37)
[2019-03-08] MEDS ORDERED: PANTOPRAZOLE SODIUM 40 MG TAB PO SCH (06:30)
[2019-03-08] MEDS ORDERED: amLODIPine BESYLATE 5 MG TAB PO SCH (09:00)
[2019-03-08] MEDS ORDERED: MULTIVITAMINS 1 EACH TAB PO SCH (09:00)
[2019-03-08] MEDS ORDERED: ASPIRIN 81 MG CHEWABLE TAB PO SCH (09:00)
[2019-03-08] MEDS ORDERED: FOLIC ACID 1 MG TAB PO SCH (09:00)
[2019-03-08 11:22] VITALS: BP 133/76
--- NOTE | 2019-03-08 11:57 | ASMTCMCOM ---
CM Note CM Note Notes: Chart reviewed for discharge planning purposes. Patient dc'd on 03/05 with [facility]. returned to ED yesterday with cough and fever. Admitted for pneumonia. CM to follow for needs. Likely dc with resumption of HHC when medically stable. plan: Home with HHC Date Signed: 03/08/2019 11:56 AM Electronically Signed By:Gill Gustafson RN
[2019-03-08] MEDS ORDERED: AMOX/CLAVULANATE 500/125 MG TAB PO ONE (13:46)
--- NOTE | 2019-03-08 14:26 | ASMTLACE ---
LACE Length of stay for Answers: Less than 1 day current admission Comorbidities - select Answers: Other Notes: RA, Pneumonia all that apply # of Emergency department Answers: 1-2 visits in the last 6 months Score: 2 Date Signed: 03/08/2019 02:26 PM Electronically Signed By:Gill Gustafson RN
--- NOTE | 2019-03-08 14:30 | ASMTDCNOTE ---
Case Management Discharge Discharge Order Complete? Answers: Yes Patient to Obtain Answers: via Family Medications Transportation Arranged Answers: Family/Friends Faxed Final Orders Answers: Yes Agency/Facility Transfer Answers: Yes Report Printed & Faxed to Receiving Agency Family Notified Answers: Yes Discharge Comments Notes: Patient has been medically cleared for discharge to home with resumption of HHC. CM available should other needs arise. Date Signed: 03/08/2019 02:29 PM Electronically Signed By:Gill Gustafson RN
--- NOTE | 2019-03-08 14:59 | PDIAF ---
- Diagnosis Code Status: Full Code - Medication Management Discharge Medications: electronically signed and located in the Home Medication List. PICC Care - Routine: N/A - Orders Services needed: Registered Nurse, Physical Therapy Isolation Type: Droplet Isolation Diet Recommendation: no restrictions on diet Diet Texture: Regular Texture Diet Activity/Weight Bearing Restrictions: per PT recommendations Additional Instructions: RN to FU pneumonia, on high risk medications- check for interactions/SE - Follow Up Care Current Providers and Referrals: Jim Noel MD [Primary Care Provider] - 3-5 days
[2019-03-08] MEDS ORDERED: PRAMIPEXOLE 1 MG TAB PO SCH (19:00)
[2019-03-08] MEDS ORDERED: LOSARTAN POTASSIUM 50 MG TAB PO SCH (19:00)
--- NOTE | 2019-03-09 10:15 | ASMTCMCOM ---
CM Note CM Note Notes: Spoke with Verito from [facility], correct orders sent. Date Signed: 03/09/2019 10:14 AM Electronically Signed By:Janice Loyola RN
--- NOTE | 2019-03-09 19:22 | GDS ---
[f rep st] DISCHARGE SUMMARY SERVICE: [facility] hospitalist. CONSULTATIONS: None. PROCEDURES: 1. On the day of admission, chest x-ray showing atelectasis and bilateral lower lobe infiltrates wit h increased opacification of the right lung base. 2. 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 No acute changes. 3. On the day of admission, lumbar spine x-ray showing multilevel DJD similar to appearance on previ ous MRI. INITIAL HISTORY AND PHYSICAL: Please see previously dictated note by Dr. Krishnamurthy. ADMISSION DIAGNOSES: 1. Bilateral lower lobe viral pneumonia, confirmed parainfluenza virus, in the setting of a recent h ospitalization for confirmed viral pneumonia. 2. Low back pain and hip pain status post falling several weeks ago. 3. Rheumatoid arthritis. 4. Chronic anemia. DISCHARGE DIAGNOSES: 1. Bilateral lower lobe viral pneumonia, confirmed parainfluenza virus, in the setting of a recent h ospitalization for confirmed viral pneumonia. 2. Low back pain and hip pain status post falling several weeks ago. 3. Rheumatoid arthritis. 4. Chronic anemia. HOSPITAL COURSE: The patient came back to the emergency department because of concerns of ongoing lo w-grade fevers. He reported that his temperature at home was 100.8. He had a chest x-ray as describ ed above and was admitted to the hospital for observation and IV antibiotics, ceftriaxone and Lev[place]i n. He reported a fall several weeks ago, with ongoing pain and bruising also. X-ray studies were do ne as described above. He chronically uses a walker. Initial blood count did not show any elevation of white blood cells, and he has a chronic stable anemia, with a hemoglobin of 12.9. Initial creati nine was 1.1, which is his baseline. He was not hypoxic and did not require oxygen throughout his st ay. He also did not have any noted fevers throughout his stay. expressed some concerns of side effects that she attributed to IV ceftriaxone. The symptoms were vague, and I tried to reassure her that they may be related to the underlying infection, but that in future they should request somethi ng different other than ceftriaxone if possible versus using it again and watching closely for some s ort of adverse reaction. Of note, there was no shortness of breath, mouth swelling, or anything that appeared anaphylactic in their descriptions of side effects. On the day of discharge, he was feelin kim better. He had not had a fever since he was admitted. He and his felt comfortable dischargin ikm to home and taking oral Augmentin. A dose was given to him prior to discharge to ensure that he to lerated it well. DISCHARGE MEDICATIONS: He is to continue with all of his chronic medications with no changes. Addit ion of Augmentin 500/125 twice a day for a total of 5 days treatment (including IV treatment in the h ospital). FOLLOWUP: Home health care was arranged to follow up pneumonia and check in with him, to ensure he i s not having any further concerning side effects. He was asked to follow up with his primary care pr ovider, Dr. Noel, within the next several days. If at any time he has return of fever or any sh ortness of breath, worsening cough, or other concerns, they can return to the emergency department fo r evaluation. /[id number]/MODL
[2019-03-11] MEDS ORDERED: METHOTREXATE 2.5 MG TAB PO SCH (09:00)
== END 2019-03-08 15:44 | disposition home or self-care (01) ==
LOC: F3E 19:50
PROVIDERS: ADMIT Internal Medicine; ATTEND Family Medicine
DX: J12.2 Parainfluenza virus pneumonia (principal); M54.5 Low back pain; D64.9 Anemia, unspecified; M06.9 Rheumatoid arthritis, unspecified; K21.9 Gastro-esophageal reflux disease without esophagitis; I12.9 Hypertensive chronic kidney disease with stage 1 through stage 4 chronic kidney disease, or unspecified chronic kidney disease; N18.3 Chronic kidney disease, stage 3 (moderate); Z96.643 Presence of artificial hip joint, bilateral; Z91.81 History of falling
CPT/HCPCS: 71046; 72100; 73521; 97165; G0378; J0456; J0696; J1956; 96365